=== PATIENT | female | born 1950 ===

== ENCOUNTER 2024-01-27 10:56 | Outpatient (RCR) | payer MEDICARE, SELFPAY | END 2024-01-27 23:59 | disposition home or self-care (01) | LOC: RPT 10:56 | PROVIDERS: ATTENDING PHYSICIAN Orthopaedic Surgery; FAMILY PHYSICIAN Family Medicine | DX: S82.142D Displaced bicondylar fracture of left tibia, subsequent encounter for closed fracture with routine healing (principal); M25.562 Pain in left knee; R26.81 Unsteadiness on feet | CPT/HCPCS: 97110; 97162; 97530 ==

== ENCOUNTER 2024-02-14 10:04 | Outpatient (RCR) | payer MEDICARE, SELFPAY | END 2024-02-14 23:59 | disposition home or self-care (01) | LOC: RPT 10:04 | PROVIDERS: ATTENDING PHYSICIAN Orthopaedic Surgery; FAMILY PHYSICIAN Family Medicine | DX: S82.142D Displaced bicondylar fracture of left tibia, subsequent encounter for closed fracture with routine healing (principal); M25.562 Pain in left knee; R26.81 Unsteadiness on feet; Z73.6 Limitation of activities due to disability; M62.81 Muscle weakness (generalized) | CPT/HCPCS: 97110; 97112; 97530 ==

== ENCOUNTER 2024-03-19 11:02 | Outpatient (RCR) | payer MEDICARE, SELFPAY | END 2024-03-19 23:59 | disposition home or self-care (01) | LOC: RPT 11:02 | PROVIDERS: ATTENDING PHYSICIAN Orthopaedic Surgery; FAMILY PHYSICIAN Family Medicine | DX: S82.142D Displaced bicondylar fracture of left tibia, subsequent encounter for closed fracture with routine healing (principal); M25.562 Pain in left knee; R26.81 Unsteadiness on feet | CPT/HCPCS: 97110; 97112; 97530 ==

== ENCOUNTER 2024-04-11 10:03 | Outpatient (RCR) | payer MEDICARE, SELFPAY | END 2024-04-11 13:46 | disposition home or self-care (01) | LOC: RPT 10:03 | PROVIDERS: ATTENDING PHYSICIAN Orthopaedic Surgery; FAMILY PHYSICIAN Family Medicine | DX: S82.142D Displaced bicondylar fracture of left tibia, subsequent encounter for closed fracture with routine healing (principal); M25.562 Pain in left knee; R26.81 Unsteadiness on feet; M62.81 Muscle weakness (generalized) | CPT/HCPCS: 97112; 97530 ==

== ENCOUNTER 2024-10-26 09:39 | Emergency (ER) | payer MEDICARE, SELFPAY ==
[2024-10-26 09:43] VITALS: BP 174/103
[2024-10-26 10:34] VITALS: BP 178/87
[2024-10-26 10:51] LABS: % Basophils 0.3 % (0-2); % Immature Granulocytes 0.3 % (0-0.5); % Lymphocytes 25.4 % (20.5-51.1); % Monocytes 8.2 % (1.7-9.3); % Neutrophils 64.8 % (42.2-75.2); Absolute Eosinophils 0.1 10^3/uL (0-0.7); Absolute Lymphocytes 1.9 10^3/uL (1.2-3.4); Absolute Monocytes 0.6 10^3/uL (0.1-0.6); Absolute Neutrophils 4.7 10^3/uL (1.4-6.5); Hematocrit 37.7 % (37.0-47.0); Mean Corp Hgb Conc. 34.5 g/dL (33.0-37.0); Mean Corpuscular Hgb 31.3 pg (27.0-31.0); Mean Corpuscular Volume 90.8 fL (81.0-99.0); Mean Platelet Volume 9.9 fL (7.4-10.4); Nucleated Red Blood Cells % 0 %; Platelet Count 249 10^3/uL (130-400); Red Blood Cell Count 4.15 10^6/uL (4.20-5.40); Red Cell Dist. Width 13.2 % (11.5-14.5); White Blood Cell Count 7.3 10^3/uL (4.8-10.8)
[2024-10-26 11:04] LABS: ALT (SGPT) 13 U/L (0-35); AST (SGOT) 27 U/L (14-36); Albumin 4.7 g/dl (3.5-5.0); Alkaline Phosphatase 91 U/L (38-126); Blood Urea Nitrogen 7 mg/dl (7-17); Calcium 10.2 mg/dl (8.4-10.2); Carbon Dioxide 27 mmol/L (22-30); Chloride 103 mmol/L (98-107); Glucose 128 mg/dl (70-99); Potassium 3.3 mmol/L (3.5-5.1); Sodium 138 mmol/L (135-145); Total Bilirubin 0.6 mg/dl (0.2-1.3); Total Protein 7.6 g/dl (6.3-8.2); eGFR > 60.00
--- NOTE | 2024-10-26 11:07 | ED.GENMED ---
History of Present Illness
General
Chief Complaint: Withdrawal Symptoms
Source: patient
Exam Limitations: none
Time Seen by Provider: 10/26/24 10:22
Nursing documentation reviewed up to this point in time: agreed with
History of Present Illness
History of Present Illness:
Patient is a 74-year-old female with history of hypothyroidism, postherpetic neuralgia presents to the ER for evaluation. Patient has been on alprazolam 1 mg in the evening for the past 20 years. She recently saw a new family doctor who
recommended she go off the medication. She abruptly stopped the medication 10 days ago. In for the past 4 days she has been taking Benadryl because she had diarrhea and she has been trying to' dry out the diarrhea.' Daughter reports for the past
several days patient has had hallucinations appeared agitated and not herself. Daughter reports she seems to be very obsessed with clinical problems .they went to urgent care while at urgent care she was seeing snakes on the TV. Urgent care
recommended she come to the ER.
Patient presents awake alert she is able give history she is aware that she has been having these brief episodes of confusion and hallucinations. Her daughter who is at bedside reports she is very redirectable when these episodes occur.
No recent fever chills.
Patient has no psychiatric history no seizure activity
Review of Systems
Review of Systems
Allergies reviewed?: Yes
All Other Systems: ROS reviewed and negative except as documented in HPI and ROS
Constitutional: Reports no symptoms; Denies fever, fatigue or chills
EENT: Reports no symptoms
Respiratory: Reports no symptoms
Cardiac: Reports no symptoms
ABD/GI: Reports diarrhea
: Reports no symptoms
Musculoskeletal: Reports no symptoms
Skin: Reports no symptoms
Neurological: Reports other (agitation episodes of confusion )
Psychiatric: Reports hallucinations
Phy Exam
General Physical Exam
General Presentation: no apparent distress
General age: appears stated age
General Skin: warm and dry
General Habitus: normal
General Mental: alert
General Hydration: appears well hydrated
Cardiovascular Exam
Cardiovascular Exam: regular rate/rhythm, no murmur and normal peripheral pulses
Pulmonary Exam
Pulmonary Exam: lungs clear and no respiratory distress
Neurological Exam
Neurological Exam: alert and oriented x3
Musculoskeletal Exam
Musculoskeletal Exam: full ROM
Skin Exam
Skin Exam: normal color and warm/dry
Psychiatric Exam
Psychiatric Exam: normal mood/affect
Course
Orders/Labs/Results
Orders:
Orders
10/26/24 10:37
CMP [Comprehensive Metabolic Panel] Urgent
Complete Blood Count/With Diff Urgent
TSH Reflex To Free T4 Urgent
Comment: ADD ON
10/26/24 11:07
Add On- LAB Urgent
Tests Added?: tsh w/ reflexive t4
CT Head W/o Iv Contrast Urgent
Comment:
Reason For Exam: change in ms
10/26/24 11:12
0.9% Sodium Chloride 1000 ml [Nss] 1,000 ml IV BOLUS
10/26/24 11:39
UA Reflex to Culture [Urinalysis Reflex To Culture] Urgent
Date Specimen was Collected: 10/26/24
Time Specimen was Collected: 11:36
10/26/24 12:55
Potassium Chloride [KCl] 40 meq PO NOW STA
Abnormal Lab Results
10/26/24 10/26/24
10:37 11:39
RBC 4.15 L 10^6/uL
(4.20-5.40)
MCH 31.3 H pg
(27.0-31.0)
Potassium 3.3 L mmol/L
(3.5-5.1)
Glucose 128 H mg/dl
(70-99)
Urine Ketones 1+ A
(Negative)
10/26/24 10:37
10/26/24 10:37
Vital Signs
Initial and Last Documented VS:
Initial Vital Signs
Temp Pulse Resp BP Pulse Ox
98.4 F 76 16 174/103 97
10/26/24 09:43 10/26/24 09:43 10/26/24 09:43 10/26/24 09:43 10/26/24 09:43
Last Documented Vital Signs
Temp Pulse Resp BP Pulse Ox
98.4 F 65 17 178/85 97
10/26/24 09:43 10/26/24 13:45 10/26/24 13:30 10/26/24 13:03 10/26/24 13:00
Community Mental Health Worker consulted with Physician
Community Mental Health Worker consulted with physician?: Yes
Name of Physician Consulted: dayami
MDM/Problems Addressed
Differential Diagnosis Includes:
Not limited to medication reaction, abrupt withdrawal of medication, medication reaction/Benadryl, dehydration UTI infection
MDM/Problems Addressed:
As documented patient is 74-year-old female brought by daughter for evaluation. Patientabruptly stopped Xanax 10 days ago in addition has been taking Benadryl and daughter noticed patient has been intermittently agitated has had some hallucinations
and not herself. In addition she has been obsessed with political issues recently. Patient presents awake alert she is oriented x 3 she is aware that she is having these thoughts however is making sense here in the ER. She is in no acute distress
no recent fever chills she is afebrile. She has had diarrhea recently however that has resolved patient's potassium was found to be mildly low and given a dose of oral potassium. Her electrolytes are otherwise unremarkable. Her urinalysis is
negative for infection.CT head negative.
case reviewed with ED physician. Symptoms likely consistent with her stopping Xanax which she has been on for the past 20 years and also combination of adding Benadryl. There are no acute concerning findings for patient's symptoms she is
well-appearing I did however review with daughter with whom patient lives with that is very important that she follow-up with family doctor so they can reassess her in the next 2 to 3 days and if any further concerns to return. Since patient has
been off of Xanax for 10 days and no seizure activity will not restart this medication. I did also review with patient and daughter that Benadryl should be stopped.
*Radiology
Radiology exam reviewed: radiology read reviewed
*Pulse Oximetry
Patient hypoxic: no
*Critical Care Note
Total Time (30-74mins, 75-104mins- exclusive of procedures): Not Applicable
ED Attending Note
-
Portions of this chart may have been created with voice recognition software.� Occasional wrong word or��sound alike� substitutions may have occurred due to the inherent limitations of voice recognition software.
Discharge Plan
Departure
Patient Disposition: Home (Routine Discharge)
Date of Disposition: 10/26/24
Time of Disposition: 13:34
Patient with high blood pressure during this ER visit?: Yes
Covid-19: Not Applicable
Discharge Problem:
Altered mental status
Instructions: BLOOD PRESSURE
Referrals:
UNKNOWN - PT NOT,INTERVIEWE [Family Provider]
Activity Restrictions/Additional Instructions:
symptoms are likely from abrupt cessation of medication/combination of also taking Benadryl. Stay well-hydrated. Please follow-up closely with family doctor in the next 2 to 3 days for reevaluation of symptoms and return if any worsening of
symptoms. As discussed patient potassium is mildly low and will need to be rechecked in the next week. Increase foods high in potassium such as green leafy vegetables bananas orange juice and potatoes.
There is no evidence of infection CAT scans unremarkable.
Interventions
Interventions:
*Risk Screen - Suicide Last Done: 10/26/24 11:36
*General Assessment Last Done: 10/26/24 11:36
*Neglect/Abuse Screening Last Done: 10/26/24 11:37
*ED- Fall Risk Assessment Last Done: 10/26/24 11:36
*ED COVID-19 Vaccine History Last Done: 10/26/24 11:36
*Nursing Disposition Last Done: 10/26/24 14:02
ED- Neurological Assessment Last Done: 10/26/24 10:46
ED-Psychological Assessment Last Done: 10/26/24 10:46
Discharge Date and Time
Discharge Date/Time: 10/26/24 14:03
Print Language: GHANAIAN
[2024-10-26] MEDS: NSS 1000 IV (11:39)
[2024-10-26 12:00] VITALS: BP 184/83
[2024-10-26 12:51] LABS: Urine Albumin Negative (Neg - Trace); Urine Bilirubin Negative (Negative); Urine Character Clear (Clear); Urine Color Yellow; Urine Glucose Negative (Negative); Urine Ketone 1+ (Negative); Urine Leukocyte Negative (Negative); Urine Nitrite Negative (Negative); Urine Occult Blood Negative (Negative); Urine Urobilinogen Negative (Neg - 1+)
[2024-10-26 13:03] VITALS: BP 178/85
[2024-10-26 13:24] LABS: TSH Reflex To Free T4 0.72 uIU/ml (0.47-4.68)
[2024-10-26] MEDS: KCL 40 MEQ PO (13:53)
== END 2024-10-26 14:03 | disposition home or self-care (01) ==
LOC: EMR 09:39
PROVIDERS: Nurse Practitioner; EMERGENCY PHYSICIAN Emergency Medicine
DX: R41.82 Altered mental status, unspecified (principal); E03.9 Hypothyroidism, unspecified; R44.2 Other hallucinations
CPT/HCPCS: 99284; 96360; 70450; 80053; 81003; 84443; 85025